=== PATIENT | male | born 1990 | race Caucasian/White ===

== ENCOUNTER 2020-06-11 09:38 | Emergency (ER) | payer OTHER ==
[~2020-06-11] VITALS: Ht 180.3 cm; Wt 77.1 kg
[~2020-06-11 09:38] MED LIST: ACET325; ALBU90OI INH; AMOX500 PO; Amoxicillin500 MG PO; BENTYL10 MG PO; BENTYL20 MG PO; CARI350 PO; CEPH500 PO; CIPR500 PO; CODACE30 PO; CODGUAEL PO; CRUTCH3 USE; CYCL10 PO; DIPATR PO; DOXY100 PO; HYDACE5 PO; HYDACE5325 PO; IBUP600 PO; IBUP800 PO; METO10 PO; METPHE20; METPHE20CR; NAPR500 PO; NAPR550 PO; Norco 5-325 Ta1 EACH PO; OMEP40CA12 PO; ONDA4ODT MM; OXYACE5T PO; PENVK500 PO; PROM25 PO; PSEU120ER PO; Pepcid20 MG PO; Percocet 5-3251 EACH PO; Peridex480 ML SS; Prednisone20 MG PO; RANI150 PO; RXCLIN PO; RXCODGUASY PO; RXCYCL10 PO; RXHYDACE PO; RXNAPNA550 PO; RXOXYACE PO; RXPROACE PO; RXTRAM50 PO; SILSUL1TC TOP; SULTRIDS PO; TRAM50 PO; Zofran Odt4 MG SL
[2020-06-11] MEDS ORDERED: PENVK500 PO (10:14)
[2020-06-11] MEDS ORDERED: TRAM50 PO (10:14)
== END 2020-06-11 10:49 | disposition home or self-care (01) ==
LOC: ER 09:38
DX: K04.7 Periapical abscess without sinus (principal); L03.211 Cellulitis of face; Z88.5 Allergy status to narcotic agent
CPT/HCPCS: 99283

== ENCOUNTER 2020-12-22 16:50 | Emergency (ER) | payer OTHER ==
[~2020-12-22] VITALS: Ht 182.9 cm; Wt 74.8 kg
[2020-12-22] MEDS ORDERED: AMOCLA875 PO (18:24)
== END 2020-12-22 18:32 | disposition home or self-care (01) ==
LOC: ER 16:50
DX: S91.311A Laceration without foreign body, right foot, initial encounter (principal); F17.210 Nicotine dependence, cigarettes, uncomplicated; Z88.5 Allergy status to narcotic agent; W25.XXXA Contact with sharp glass, initial encounter
CPT/HCPCS: 12001; 73620; 99283-25; A9270

== ENCOUNTER 2021-12-01 16:27 | Emergency (ER) | payer OTHER ==
[~2021-12-01] VITALS: Ht 182.9 cm; Wt 79.4 kg
[~2021-12-01 16:27] MED LIST changes: +AMOCLA875 PO
[2021-12-01 17:16] LABS: BASOPHILS ABSOLUTE AUTO 0.03 K/mm3 (0.00-0.23); BASOPHILS PERCENT AUTO 0 % (0-2); EOSINOPHILS ABSOLUTE AUTO 0.02 K/mm3 (0.00-0.68); EOSINOPHILS PERCENT AUTO 0 % (0-6); Hemoglobin 16.6 g/dL (13.5-17.5); IMMATURE GRAN ABSOLUTE AUTO 0.04 K/mm3 (0.00-0.10); IMMATURE GRAN PERCENT AUTO 0 % (0-1); LYMPHOCYTES ABSOLUTE AUTO 0.46 K/mm3 (0.84-5.20); LYMPHOCYTES PERCENT AUTO 4 % (21-46); MONOCYTES PERCENT AUTO 8 % (4-13); Mean Corpuscular HGB 33.9 pg (26.0-34.0); Mean Corpuscular HGB Conc 36.1 g/dL (31.5-36.5); Mean Corpuscular Volume 94 fL (80-100); Mean Platelet Volume 10.4 fL (9.1-12.4); NEUTROPHILS ABSOLUTE AUTO 9.51 K/mm3 (1.96-9.15); NEUTROPHILS PERCENT AUTO 87 % (41-73); Platelet Count 216 K/mm3 (150-400); RDW Coefficient Variation 11.6 % (11.7-14.2); RDW Standard Deviation 40.2 fL (35.1-46.3); Red Blood Cell Count 4.89 M/mm3 (4.30-5.90); White Blood Cell Count 10.96 K/mm3 (4.00-11.30)
[2021-12-01 17:31] LABS: Albumin, Blood 4.2 g/dL (3.4-5.0); Bilirubin, Total 0.8 mg/dL (0.1-1.0); Calcium, Blood 9.4 mg/dL (8.5-10.1); Creatinine, Blood 0.77 mg/dL (0.60-1.20); Globulin, Blood 4.2 g/dL (2.2-4.0); Potassium, Blood 3.5 mmol/L (3.5-5.5); Total Protein, Blood 8.4 g/dL (6.4-8.2)
[2021-12-01 17:52] LABS: Source, Urine Clean Catch
[2021-12-01 17:57] LABS: Appearance, Urine Clear (Clear); Bilirubin, Urine Neg (Neg); Blood, Urine Neg (Neg); Color, Urine Amber (P-Yellow); Glucose Qualitative, Urine Neg (Neg); Ketones, Urine 3+ (Neg); Leukocyte Esterase, Urine Neg (Neg); Nitrite, Urine Neg (Neg); Urobilinogen, Urine 1+ (Normal)
[2021-12-01 17:59] LABS: Protein, Urine 2+ (Neg)
[2021-12-01 18:05] LABS: Bacteria Rare /hpf; Red Blood Cells, Urine 0-2 /hpf (0-2); Squamous Epithelial Cells Rare /hpf (Few); White Blood Cells, Urine 0-2 /hpf (0-5)
[2021-12-01] MEDS ORDERED: IBU800 MG PO (18:55)
[2021-12-01] MEDS ORDERED: MONDOXYNE NL100 MG PO (18:55)
== END 2021-12-01 19:18 | disposition home or self-care (01) ==
LOC: ER 16:27
PROVIDERS: Physician Assistant
DX: N45.1 Epididymitis (principal); N43.3 Hydrocele, unspecified; F17.210 Nicotine dependence, cigarettes, uncomplicated; Z88.5 Allergy status to narcotic agent
CPT/HCPCS: 36415; 76870; 80053; 81001; 85025; A9270; J0696; J1170; J1200; J1885; J2405; J2550; J3010

== ENCOUNTER → 2024-09-29 | Outpatient (CLI) | payer OTHER ==
[~2024-09-29] MED LIST changes: +CARAFATE1 GM/10 M1 PO; +IBU800 MG PO; +MONDOXYNE NL100 MG PO; +Prilosec Otc20 MG PO
[2024-10-02 08:50] LABS: HEPATITIS B SURFACE ANTIBODY 31.64 IU/L
[2024-10-02 14:53] LABS: HEPATITIS B SURFACE ANTIGEN Negative (Negative)
[2024-10-02 15:37] LABS: HCV QNT BY NAAT (IU/ML) Not Detected; HCV QNT BY NAAT (LOG IU/ML) Not Detected; HCV QNT BY NAAT INTERP Not Detected (Not Detected)
[2024-10-02 18:25] LABS: HIV 1,2 COMBO ANTIGEN/ANTIBODY Negative (Negative)
== END ==
LOC: LAB SHORT 17:54 → LAB 17:54
PROVIDERS: Physician Assistant
DX: Z20.9 Contact with and (suspected) exposure to unspecified communicable disease (principal)
CPT/HCPCS: 84460; 87340; 87389; 87522

== ENCOUNTER 2024-09-30 18:38 | Emergency (ER) | payer OTHER ==
[~2024-09-30] VITALS: Ht 180.3 cm; Wt 93.0 kg
[2024-09-30 18:49] VITALS: BP 123/88
== END 2024-09-30 22:32 | disposition home or self-care (01) ==
LOC: ER 18:38
DX: S90.31XA Contusion of right foot, initial encounter (principal); F17.210 Nicotine dependence, cigarettes, uncomplicated; X58.XXXA Exposure to other specified factors, initial encounter; Z88.5 Allergy status to narcotic agent
CPT/HCPCS: 73630; 99283-25

== ENCOUNTER → 2025-01-13 | Outpatient (CLI) | payer OTHER ==
[2025-01-15 15:28] LABS: HIV 1,2 COMBO ANTIGEN/ANTIBODY Negative (Negative)
== END ==
LOC: LAB SHORT 12:20 → LAB 12:20
PROVIDERS: Physician Assistant
DX: Z20.9 Contact with and (suspected) exposure to unspecified communicable disease (principal)
CPT/HCPCS: 87389